=== PATIENT | female | born 1980 | race Two or more races ===

== ENCOUNTER → 2024-05-02 | Outpatient (CLI) | payer BC, SELFPAY ==
--- NOTE | 2024-05-02 08:00 | XR_ITS ---
Examination: Screening digital mammography, bilateral Computer aided detection 3-D breast Tomosynthesis, bilateral Date and time of exam: May 02, 2024 0816 hours No priors Indication: Screening Technique: Nonmagnified MLO, CC views of the breasts to been obtained, reconstructed from 3-D Tomosynthesis images. R2 computer aided detection program utilized for evaluation of suspicious masses and/or abnormal calcifications. 3-D Tomosynthesis images obtained. Findings: The breasts are heterogeneously dense, which may obscure small masses Benign calcifications. No suspicious masses Impression: BI-RADS category II: Benign Findings. Recommend 1 year follow-up mammogram.
== END | disposition home or self-care (01) ==
LOC: CDIM 08:09
PROVIDERS: PCP Family Medicine; Referring Provider Specialist; Visit Provider Specialist
DX: Z12.31 Encounter for screening mammogram for malignant neoplasm of breast (principal); R92.323 Mammographic fibroglandular density, bilateral breasts; R92.1 Mammographic calcification found on diagnostic imaging of breast
CPT/HCPCS: 77063; 77067

== ENCOUNTER → 2024-05-06 | Outpatient (CLI) | payer BC, SELFPAY | END | disposition home or self-care (01) | LOC: SLDO 14:36 | PROVIDERS: Referring Provider Nurse Practitioner Family; Visit Provider Nurse Practitioner Family | DX: N30.00 Acute cystitis without hematuria (principal) | CPT/HCPCS: 87077; 87086; 87186 ==

== ENCOUNTER 2024-11-12 21:16 | Emergency (ER) | payer BC, SELFPAY ==
[2024-11-12 21:17] VITALS: BMI 26.0
[2024-11-12 21:46] VITALS: BP 127/84; PULSE 103; RESP 18; TEMP 37.2; O2SAT 98
--- NOTE | 2024-11-12 22:08 | XR_ITS ---
Examination: CT abdomen with intravenous contrast CT pelvis with intravenous contrast 2-D coronal reconstructions 2-D sagittal reconstructions Date and time of exam:November 12, 2024, 1145 hours Comparison February 23, 2022. INDICATIONS: Onset right lower abdominal pain nausea vomiting today CTDI: vol (mGy) 8.20 DLP: (mGycm) 468 Technique: Multiple axial sections of the abdomen and pelvis have been obtained. 64 slice high-resolution scanner used. 3 mm axial sections have been obtained, post intravenous injection 60 cc [id number] 2-D sagittal, coronal reconstructions obtained. Low dose protocols were performed. One or more of the following dose reduction techniques were used; automated exposure control, adjustment of the mA and/or KV according to patient size, use of iterative reconstruction technique. Findings: 3 mm right lobe liver cyst Contracted gallbladder No pancreatic or adrenal mass Mild wall thickening involving the right pelvicalyceal system and right ureter No renal or ureteral calculi, no hydronephrosis Aorta normal size Small lymph nodes in the right lower mesentery Normal appendix Retroverted uterus mildly enlarged No adnexal mass Mild free fluid in the pelvis Urinary bladder is intact Osseous structures intact IMPRESSION: Normal appendix Suspicious for right urinary tract infection Mildly enlarged uterus with free fluid in the pelvis, recommend pelvic sonography follow-up
--- NOTE | 2024-11-12 22:09 | PD.EDRME ---
Rapid Medical Screening Exam RME Arrival date/time: 11/12/24 21:16 43F with no significant PMH presents to ED with several days of RLQ pain and N/V. Patient denies dysuria/hematuria. Chief Complaint: Abdominal Pain Time Seen by Provider: 11/13/24 02:54 Vital signs: Vital Signs Temperature 98.9 F 11/12/24 21:46 Pulse Rate 103 H 11/12/24 21:46 Respiratory Rate 18 11/12/24 21:46 Blood Pressure 127/84 11/12/24 21:46 Pulse Oximetry (%) 98 11/12/24 21:46 Oxygen Delivery Method Room Air 11/12/24 21:46
[2024-11-12] MEDS: ONDANSETRON INJ 2 MG/ML INJ 2 ML 4 MG IV (22:36)
[2024-11-12 22:37] LABS: Collection Type, Urine Clean Catch
[2024-11-12 22:44] LABS: Basophils # (Auto) 0.0 Thou/mm3 (0.0-0.2); Basophils % (Auto) 0 % (0-2.5); Eosinophils # (Auto) 0.0 Thou/mm3 (0.0-0.5); Eosinophils % (Auto) 0 % (0-10); Hematocrit 35.8 % (36.0-46.0); Hemoglobin 12.5 g/dL (12.0-16.0); Immature Granulocytes Auto 0.05 Thou/mm3 (0.00-0.00); Lymphocytes # (Auto) 1.4 Thou/mm3 (1.0-4.8); Lymphocytes % (Auto) 9 % (10-50); Mean Corpuscular HGB Conc 34.9 g/dl (31.0-37.0); Mean Corpuscular Hemoglobin 29.6 pg (25.0-35.0); Mean Corpuscular Volume 85 fL (80-100); Monocytes # (Auto) 1.1 Thou/mm3 (0.0-0.8); Monocytes % (Auto) 7 % (0-12); Neutrophils # (Auto) 12.7 Thou/mm3 (1.8-7.7); Neutrophils % (Auto) 83 % (37-80); Nucleated Red Blood Cell # 0.00 Thou/mm3 (0.00-0.00); Nucleated Red Blood Cell % 0 /100 WBC (0); Platelet Count 213 Thou/mm3 (140-440); RDW Standard Deviation 43.6 fL (36.4-46.3); Red Blood Count 4.23 Miln/mm3 (4.00-5.20); White Blood Count 15.3 Thou/mm3 (3.6-11.0)
[2024-11-12 22:57] LABS: Bacteria,Urine Rare; Bilirubin,Urine Negative (Negative); Blood,Urine Trace (Negative); Clarity,Urine Turbid (Clear/Hazy); Color,Urine Lt-Yellow (Lt Yel-Yel); Glucose, Urine Negative (Negative); Hyaline Casts,Urine < 1 /hpf (0-1); Ketones,Urine Negative (Negative); Leukocyte Esterase,Urine Positive (Negative); Nitrite,Urine Negative (Negative); PH,Urine 5.5 (5.0-7.0); Protein,Urine Trace (Neg - Trace); RBC,Urine 9 /hpf (0-3); Specific Gravity,Urine 1.018 (1.001-1.035); Squamous Epithelial Cell,Urine 1 /hpf (0-5); Urobilinogen,Urine Negative mg/dL (0.0-1.0); WBC,Urine 132 /hpf (0-5)
[2024-11-12 22:58] LABS: Culture Indicated,Urine Yes
[2024-11-12 23:00] LABS: HCG Qualitative,Urine Negative
[2024-11-12 23:12] LABS: Alanine Aminotransferase < 7 U/L (10-49); Albumin, Serum 4.2 gm/dL (3.5-5.0); Albumin/Globulin Ratio 1.5 (1.2-2.2); Alkaline Phosphatase 89 U/L (46-116); Anion Gap 10 (7-16); Aspartate Amino Transferase 14 U/L (0-34); BUN/Creatinine Ratio 17 Ratio (12-20); Bilirubin,Total 0.4 mg/dL (0.3-1.2); Blood Urea Nitrogen 10 mg/dL (9-23); Calcium 10.0 mg/dL (8.3-10.6); Calcium (Corrected) 10.0 mg/dL (8.5-10.1); Carbon Dioxide 20.5 mMol/L (20.0-31.0); Chloride 105 mMol/L (98-107); Creatinine (Component) 0.6 mg/dL (0.6-1.3); Estimated Creatinine Clearance 103.6 mL/min (>60); Globulin 2.8 gm/dL (2.3-3.5); Glucose 122 mg/dL (74-106); Lipase 29 U/L (12-53); Osmolality,Calculated 270 (275-295); Potassium 3.5 mMol/L (3.4-5.1); Sodium 135 mMol/L (136-145); Total Protein 7.0 gm/dL (5.7-8.2); eGFR > 60 See Note
--- NOTE | 2024-11-13 01:07 | XR_ITS ---
Examination: Pelvic ultrasound, transabdominal, complete Technique: Transabdominal ultrasound of the pelvis performed using grayscale imaging Date and time of exam: November 13, 2024, 0131 hours INDICATIONS: Right lower abdominal pain and pelvic pain onset today FINDINGS: Uterus 10.3 cm uterine body area of fibroid degeneration 3.7 x 4.0 cm No intrauterine gestation Ovaries obscured by bowel gas Endometrial stripe 14 mm IMPRESSION: Uterine body area of fibroid degeneration 3.7 x 3.4 x 4.0 cm
[2024-11-13 02:02] VITALS: BP 113/73; PULSE 76; RESP 18; TEMP 37.1; O2SAT 97
--- NOTE | 2024-11-13 02:55 | PD.EDABDPN ---
ED Abdominal Pain RME/HPI General Chief Complaint: Abdominal Pain Stated complaint: RIGHT ABD PAIN Time seen by provider: 11/13/24 02:54 Arrival date/time: 11/12/24 21:16 43F with no significant PMH presents to ED with several days of RLQ pain and N/V. Patient denies dysuria/hematuria and vaginal bleeding. Limitations: no limitations RME / HPI RME / HPI narrative: 11/12/24 21:16 43F with no significant PMH presents to ED with several days of RLQ pain and N/V. Patient denies dysuria/hematuria. Related Data Previous Rx's ?Medication ?Instructions ?Recorded Pen VK 500 MG 1 tab PO QID #40 tabs 03/06/15 hurricaine spr 2 spry buccal q2hprn sorethroat #1 03/06/15 unit cefuroxime axetil 500 mg tablet 500 mg PO BID 7 days #14 tabs 11/13/24 Allergies Allergy/AdvReac Type Severity Reaction Status Date / Time No Known Allergies Allergy Verified 11/12/24 21:17 Review of Systems Review of Systems Systems Reviewed: All systems reviewed, normal except as documented Constitutional Constitutional: Reports system reviewed and no additional complaints, except as documented, Denies fever(s) and Denies headache(s) ENT Ears, Nose, Mouth, and Throat: Denies disequilibrium and Denies headache(s) Cardiovascular Cardiovascular: Reports system reviewed and no additional complaints, except as documented, Denies chest pain and Denies dyspnea Respiratory Respiratory: Reports system reviewed and no additional complaints, except as documented, Denies cough and Denies dyspnea Gastrointestinal Gastrointestinal: Reports system reviewed and no additional complaints, except as documented, Reports as per HPI, Reports abdominal pain, Reports nausea and Reports vomiting Neurologic Neurologic: Reports system reviewed and no additional complaints, except as documented, Denies confusion, Denies disequilibrium and Denies headache(s) Psychiatric Psychiatric: Denies confusion Past Medical History Past Medical History CARDIAC: Negative Cardiac Disorders RESPIRATORY: Negative Asthma GENITOURINARY: Negative Renal Disease ENDOCRINE: Negative Diabetes Mellitus Type 2 HEMATOLOGIC: Negative Sickle Cell Disease Social History SMOKING STATUS: Never smoker ED Exam General Limitations: Present no limitations General appearance: Present alert and in no apparent distress Head Head exam: Present atraumatic Eye Eye exam: Present normal appearance, PERRL and EOMI ENT ENT exam: Present normal exam, normal oropharynx and mucous membranes moist Neck Neck exam: Present normal inspection, full ROM and trachea midline Chest Chest inspection: Present normal inspection and symmetric chest wall rise Respiratory Respiratory exam: Present normal lung sounds bilaterally Cardiovascular Cardiovascular exam: Present regular rate, normal rhythm and normal heart sounds Abdominal Exam Abdominal exam: Present soft and normal bowel sounds Abdominal tenderness: Present RLQ and mild Extremities Exam Extremities exam: Present normal inspection and full ROM Back Exam Back exam: Present normal inspection and full ROM Neurological Exam Neurological exam: Present alert, oriented X3 and CN II-XII intact Psychiatric Psychiatric exam: Present normal affect and normal mood Skin Skin exam: Present warm, dry, intact and normal color Course Quality Measures none Orders Category Date Time Status CT Screening NOW Care 11/12/24 22:09 Completed Insert IV NOW Care 11/12/24 22:[address] abdomen pelvis w con Stat Exams 11/12/24 22:08 Completed US pelvic complete Stat Exams 11/13/24 01:07 Taken CBC Stat Lab 11/12/24 22:23 Completed CMP [Comprehensive Metabolic Panel] Stat Lab 11/12/24 22:23 Completed HCG Qualitative,Urine Stat Lab 11/12/24 22:17 Completed Lipase Stat Lab 11/12/24 22:23 Completed Urinalysis, C/S if Indicated Stat Lab 11/12/24 22:17 Completed Urine Culture Stat Lab 11/12/24 22:17 Received Ketorolac Inj [Toradol Inj] Med 11/13/24 02:55 Discontinued 30 mg IVP X1 ONE Ondansetron Inj [Zofran Inj] Med 11/12/24 22:08 Discontinued 4 mg IV X1 ONE cefTRIAXone/D5w 1gm IV premix [Rocephin/D5w 1gm IV Med 11/13/24 02:56 Discontinued premix] 1 gm in 50 ml IV X1 Vital Signs Vital signs: Vital Signs Temperature 98.9 F 11/12/24 21:46 Pulse Rate 103 H 11/12/24 21:46 Respiratory Rate 18 11/12/24 21:46 Blood Pressure 127/84 11/12/24 21:46 Pulse Oximetry (%) 98 11/12/24 21:46 Oxygen Delivery Method Room Air 11/12/24 21:46 O2 at 98% on RA and WNLs Abdominal Pain MDM MDM Narrative MDM Narrative:: 43F with no significant PMH presents to ED with several days of RLQ pain and N/V. Patient denies dysuria/hematuria and vaginal bleeding. Physical exam reveals mild RLQ tenderness. Patient is afebrile, calm, and alert. CT reveals R-sided UTI, confirmed by UA. Moderate leukocytosis, but CMP unremarkable. US pelvic fibroid, but patient already knew about that. Meds and personal counselor given. Patient data External records reviewed:: [facility] previous records Clinical information provided by:: patient Social determinants that could affect healthcare access:: none Patient has the following chronic illnesses:: none How is presenting disease/condition affected by chronic disease/condition?: no chronic disease Evaluation data The following diagnostics were reviewed and interpreted by me:: lab results and radiology exam(s) Lab and/or radiology exams considered but not ordered:: ordered Interpretation Summary: above Medications / Prescriptions Medications or Prescriptions considered but not ordered:: ordered Medication administrations:: Medication Administration History Discontinued Medications Ceftriaxone Sodium/Dextrose (Rocephin/D5w 1gm Iv Premix) 1 gm in 50 mls @ 100 mls/hr IV X1 ONE Stop: 11/13/24 03:25 Last Infusion: 11/13/24 03:46 Dose: Infused Documented By: Admin: 11/13/24 03:04 Dose: 100 mls/hr Documented By: PARIS Ketorolac Tromethamine (Ketorolac Inj 30 Mg/Ml Vial) 30 mg IVP X1 ONE Stop: 11/13/24 02:56 Last Admin: 11/13/24 03:03 Dose: 30 mg Documented By: PARIS Ondansetron HCl (Ondansetron Inj 2 Mg/Ml Inj 2 Ml) 4 mg IV X1 ONE; Protocol Stop: 11/12/24 22:09 Last Admin: 11/12/24 22:36 Dose: 4 mg Documented By: above Consultations Consultation(s) initiated? (list below): No Diagnosis Differential diagnosis abdominal pain: abdominal pain, acute appendicitis, calculus of kidney, constipation, diverticulitis, endometriosis, gastroenteritis, pancreatitis, small bowel obstruction and other (UTI) Most likely diagnosis given after review of the tests above:: UTI Admission Indicated Admission indicated?: not indicated Admission Request Was there a request for admission?: No Disposition Plan Disposition Plan: Discharge Discharge Attestation Discharge Attestation: The patient and all family members were given an opportunity to ask questions and understood the discharge instructions. Discharge instructions specifically effects, indications for sooner follow up or return to the emergency department, and the expected course of current diagnosis. Patient condition: Stable Discharge Plan Plan Patient Disposition: HOME (Self Care) Discharge Disposition comment: Stable Prescriptions/Referrals Prescriptions/Med Rec: New cefuroxime axetil 500 mg tablet 500 mg PO BID 7 Days Qty: 14 0RF No Action Pen VK 500 MG 1 tab PO QID Qty: 40 0RF hurricaine spr 2 spry buccal q2hprn sorethroat Qty: 1 0RF Referrals: Anum Portillo MD [Primary Care Provider] - In 1 week Problem List Clinical Impression: UTI (urinary tract infection) Patient/Caregiver Discharge Instructions Education Materials: ED CYSTITIS Female Adult Additional Instructions: Please follow-up with PCP within 24-48 hours and return immediately if symptoms worsen. Ibuprofen/Tylenol can be used simultaneously for greater fever/pain control. NSAIDs like ibuprofen tend to work better for this type of pain. Print Language: Italian Stand Alone Forms: Patient Portal Info Letter SHAILA/TIGRE Supervising Physician SHAILA/TIGRE Supervising Physician: Dr. Moya
[2024-11-13] MEDS: KETOROLAC INJ 30 MG/ML VIAL IVP (03:03)
[2024-11-13] MEDS: cefTRIAXone/D5w 1gm IV premix 1 GM/50 ML BAG IV (03:04)
[2024-11-13 03:47] VITALS: BP 115/72; PULSE 80; RESP 16; TEMP 36.7; O2SAT 98
--- NOTE | 2024-11-18 19:14 | PD.EDADDENDU ---
Emergency Room Addendum Addendum Narrative: UC grew bacteria resistant to empiric ABX prescribed. Patient went to PCP today, who also noticed this and sent new ABX (likely cipro), which patient picked up today. This was confirmed via the telephone.
== END 2024-11-13 03:48 | disposition home or self-care (01) ==
PROVIDERS: Physician Assistant; Emergency Provider Emergency Medicine; PCP Family Medicine
DX: N39.0 Urinary tract infection, site not specified (principal); R11.2 Nausea with vomiting, unspecified; R10.31 Right lower quadrant pain; D25.9 Leiomyoma of uterus, unspecified; B96.89 Other specified bacterial agents as the cause of diseases classified elsewhere; Z16.30 Resistance to unspecified antimicrobial drugs
CPT/HCPCS: 36415; 74177; 76856; 80053; 81001; 81025; 83690; 85025; 87077; 87086; 87186; 96365; 96375; 99285; A4649; J0696; J1885; J2405; Q9967

== ENCOUNTER → 2024-11-18 | Outpatient (CLI) | payer BC, SELFPAY ==
[2024-11-18 12:30] LABS: Basophils # (Auto) 0.0 Thou/mm3 (0.0-0.2); Basophils % (Auto) 1 % (0-2.5); Eosinophils # (Auto) 0.1 Thou/mm3 (0.0-0.5); Eosinophils % (Auto) 1 % (0-10); Hematocrit 37.5 % (36.0-46.0); Hemoglobin 12.8 g/dL (12.0-16.0); Immature Granulocytes Auto 0.03 Thou/mm3 (0.00-0.00); Lymphocytes # (Auto) 3.0 Thou/mm3 (1.0-4.8); Lymphocytes % (Auto) 45 % (10-50); Mean Corpuscular HGB Conc 34.1 g/dl (31.0-37.0); Mean Corpuscular Hemoglobin 29.6 pg (25.0-35.0); Mean Corpuscular Volume 87 fL (80-100); Monocytes # (Auto) 0.4 Thou/mm3 (0.0-0.8); Monocytes % (Auto) 6 % (0-12); Neutrophils # (Auto) 3.2 Thou/mm3 (1.8-7.7); Neutrophils % (Auto) 48 % (37-80); Nucleated Red Blood Cell # 0.00 Thou/mm3 (0.00-0.00); Nucleated Red Blood Cell % 0 /100 WBC (0); Platelet Count 297 Thou/mm3 (140-440); RDW Standard Deviation 41.5 fL (36.4-46.3); Red Blood Count 4.32 Miln/mm3 (4.00-5.20); White Blood Count 6.8 Thou/mm3 (3.6-11.0)
[2024-11-18 12:46] LABS: Alanine Aminotransferase 13 U/L (10-49); Albumin, Serum 4.3 gm/dL (3.5-5.0); Albumin/Globulin Ratio 1.3 (1.2-2.2); Alkaline Phosphatase 84 U/L (46-116); Anion Gap 10 (7-16); Aspartate Amino Transferase 24 U/L (0-34); BUN/Creatinine Ratio 7 Ratio (12-20); Bilirubin,Total 0.2 mg/dL (0.3-1.2); Blood Urea Nitrogen 5 mg/dL (9-23); Calcium 9.4 mg/dL (8.3-10.6); Calcium (Corrected) 9.4 mg/dL (8.5-10.1); Carbon Dioxide 26.8 mMol/L (20.0-31.0); Chloride 105 mMol/L (98-107); Creatinine (Component) 0.7 mg/dL (0.6-1.3); Globulin 3.2 gm/dL (2.3-3.5); Glucose 88 mg/dL (74-106); Osmolality,Calculated 279 (275-295); Potassium 4.2 mMol/L (3.4-5.1); Sodium 142 mMol/L (136-145); Total Protein 7.5 gm/dL (5.7-8.2); eGFR > 60 See Note
[2024-11-24 09:32] LABS: Gamma Glutamyl Transpeptidase* 15 U/L (3-55)
== END | disposition home or self-care (01) ==
LOC: COPL 11:12
PROVIDERS: PCP Family Medicine; Referring Provider Student in an Organized Health Care Education/Training Program; Visit Provider Student in an Organized Health Care Education/Training Program
DX: K82.8 Other specified diseases of gallbladder (principal); R10.9 Unspecified abdominal pain
CPT/HCPCS: 36415; 80053; 82977; 85025

== ENCOUNTER → 2024-11-26 | Outpatient (CLI) | payer BC, SELFPAY | END | disposition home or self-care (01) | LOC: SLDO 14:40 | PROVIDERS: PCP Student in an Organized Health Care Education/Training Program; Referring Provider Student in an Organized Health Care Education/Training Program; Visit Provider Student in an Organized Health Care Education/Training Program | DX: N39.0 Urinary tract infection, site not specified (principal) | CPT/HCPCS: 87086 ==